=== PATIENT | male | born 1955 | race Caucasian/White ===

== ENCOUNTER 2016-12-15 06:56 | Day surgery (SDC) | payer BC ==
[2016-12-15] MEDS ORDERED: LACTATED RINGERS 1,000 ML IV SCH (07:01)
[2016-12-15] MEDS ORDERED: LIDOCAINE 1% 20 ML VIAL (10MG/ML) FOR IV START INTRADERMA PRN (07:01)
[2016-12-15 07:10] VITALS: RESP 18; TEMP 98
[2016-12-15] MEDS ORDERED: LACTATED RINGERS 1,000 ML IV ONE (07:10)
[2016-12-15] MEDS ORDERED: PROPOFOL 10 MG/ML 20 ML VIAL IV ONE (08:14)
--- NOTE | 2016-12-15 08:34 | P.OP ---
Date of Procedure: 12/15/16 Preoperative Diagnosis: Screening. Personal history of colon polyp tubular adenoma. Family history of colon CA in a parent. Postoperative Diagnosis: Mild diverticulosis. Procedure(s) Performed: Colonoscopy Anesthesia: MAC Surgeon: Jd Barahona Estimated Blood Loss (ml): 0 Pathology: none sent Condition: stable Disposition: same day Indications for Procedure: Screening. Personal history of colon polyps or tubular adenoma. Family history of colon CA in a parent. Operative Findings: Mild diverticulosis. Mild internal hemorrhoids. Description of Procedure: With the patient in the left lateral position rectal digital examination was normal there are no palpable masses. No prostatic masses. The video colonoscope was inserted transanally and advanced all the way to the cecum which was entered without visualized. The mucosa were thoroughly examined. Findings: Mild diverticulosis and mild internal hemorrhoids. No polyps neoplasms seen. Recommend follow-up colonoscopy in about the 5 years high-fiber diet.
[2016-12-15 09:04] VITALS: BP 111/74; PULSE 69
== END 2016-12-15 09:09 | disposition home or self-care (01) ==
LOC: ORWHC2ENDO 06:56
PROVIDERS: ATTEND Surgery
DX: Z12.11 Encounter for screening for malignant neoplasm of colon (principal); Z86.010 Personal history of colon polyps; Z80.0 Family history of malignant neoplasm of digestive organs; K57.30 Diverticulosis of large intestine without perforation or abscess without bleeding; K64.8 Other hemorrhoids; I10 Essential (primary) hypertension; Z79.899 Other long term (current) drug therapy
CPT/HCPCS: J2704; G0105

== ENCOUNTER → 2019-07-06 | Outpatient (CLI) | payer BC ==
--- NOTE | 2019-07-06 11:40 | XR ---
EXAMINATION TYPE: XR chest 2V DATE OF EXAM: 07/06/2019 COMPARISON: NONE HISTORY: Cough for 2 months TECHNIQUE: Frontal and lateral views of the chest are obtained. FINDINGS: There is no focal air space opacity, pleural effusion, or pneumothorax seen. The cardiac silhouette size is within normal limits. The osseous structures are intact. Mild multilevel degener ative changes of the spine. Partially visualized cervical fusion device. IMPRESSION: No acute cardiopulmonary process.
== END | disposition home or self-care (01) ==
LOC: RADXRYALE 11:04
PROVIDERS: ATTEND Physician Assistant Medical
DX: R05 Cough (principal)
CPT/HCPCS: 71046

== ENCOUNTER → 2020-05-14 | Outpatient (CLI) | payer BC ==
--- NOTE | 2020-05-14 12:44 | EST ---
EXERCISE STRESS AGE: 64 SEX: M HT: 5'11" WT: 250 lbs. PROTOCOL: Kahlil STAGE: III DURATION OF EXERCISE: 9:00 HEART RATE REST: 64 BLOOD PRESSURE REST: 128/77 MAXIMUM HEART RATE ACHIEVED: 133 MAXIMUM BLOOD PRESSURE: 208/120 85% MPHR: 133 100% MPHR: 157 METS: 10.5 INDICATION: Hypertension and dyslipidemia. Baseline EKG shows sinus rhythm, normal axis, normal intervals. Patient exercised on Kahlil protocol for a total of 9 minutes achieving 10 METS, 100% of predicted maximal heart rate without chest pain or diagnostic ST-segment depression. CONCLUSION: 1. Good exercise tolerance. 2. Negative stress test by EKG criteria. MMODL / IJN: [id number] /
== END | disposition home or self-care (01) ==
LOC: RADNMMAIN 10:02
PROVIDERS: ATTEND Family Medicine
DX: E78.2 Mixed hyperlipidemia (principal); I10 Essential (primary) hypertension; E66.09 Other obesity due to excess calories
CPT/HCPCS: 93017

== ENCOUNTER → 2020-05-15 | Outpatient (CLI) | payer BC ==
--- NOTE | 2020-05-15 11:29 | US ---
EXAMINATION TYPE: US abdomen complete DATE OF EXAM: 05/15/2020 COMPARISON: NONE CLINICAL HISTORY: R94.5 ABN LIVER FUNCTION STUDIES. EXAM MEASUREMENTS: Liver Length: 16.8 cm Gallbladder Wall: 0.3 cm CBD: 0.5 cm Spleen: 11.4 cm Right Kidney: 11.8 x 5.9 x 5.0 cm Left Kidney: 12.6 x 5.9 x 5.4 cm Pancreas: Obscured by bowel gas Liver: Increased attenuation, decreased visualization of vessels suggestive of fatty infiltrate Gallbladder: wnl Evidence for sonographic Lomeli's sign: No CBD: wnl Spleen: wnl Right Kidney: No hydronephrosis or masses seen Left Kidney: No hydronephrosis or masses seen Upper IVC: limited visualization Abd Aorta: proximal obscured. mid and distal appear WNL. IMPRESSION: 1. Nonspecific pattern to the liver can be seen with fatty infiltration, hepatitis or diffuse hepatoc ellular disease. Correlate clinically.
== END | disposition home or self-care (01) ==
LOC: RADUSWWP 10:32
PROVIDERS: ATTEND Family Medicine
DX: R94.5 Abnormal results of liver function studies (principal)
CPT/HCPCS: 76700

== ENCOUNTER → 2021-05-07 | Outpatient (CLI) | payer BC ==
--- NOTE | 2021-05-07 16:25 | XR ---
EXAMINATION TYPE: XR lumbosacral spine min 4V DATE OF EXAM: 05/07/2021 COMPARISON: 09/12/2015 HISTORY: Low back pain TECHNIQUE: 5 view lumbar spine FINDINGS: There are 5 lumbar-type vertebral bodies. Pedicles are intact. There is loss of disc at L5- S1. Posterior disc space narrowing is present L4-5. Facet degenerative changes are present L4-5 and to lesser degree L5-S1. No spondylolytic defects are evident. Vertebral body heights are preserved. A limbus vertebra may be present at T12. COMPARISON: Disc space narrowing posteriorly is developing at L4-5. IMPRESSION: 1. Degenerative disc changes L4-5 and L5-S1. 2. Facet degenerative changes lower lumbar spine
== END | disposition home or self-care (01) ==
LOC: RADXRYALE 11:50
PROVIDERS: ATTEND Physician Assistant Medical
DX: M47.817 Spondylosis without myelopathy or radiculopathy, lumbosacral region (principal)
CPT/HCPCS: 72110

== ENCOUNTER → 2023-07-15 | Outpatient (CLI) | payer MEDICARE ==
--- NOTE | 2023-07-15 09:41 | XR ---
EXAMINATION TYPE: XR chest 2V DATE OF EXAM: 07/15/2023 9:13 AM CLINICAL INDICATION:Male, 67 years old with history of [id number] INTERCOSTAL PAIN,RLQ PAIN; [facility] COMPARISON: Chest radiographs from 07/06/2019 TECHNIQUE: XR chest 2V Frontal and lateral views of the chest. FINDINGS: Lungs/Pleura: There is no evidence of pleural effusion, focal consolidation, or pneumothorax. Pulmonary vascularity: Unremarkable. Heart/mediastinum: Cardiomediastinal silhouette is unremarkable. Musculoskeletal: No acute osseous pathology. There is fixation hardware in the lower cervical spine. IMPRESSION: No acute cardiopulmonary disease/process.
--- NOTE | 2023-07-15 09:49 | XR ---
EXAMINATION TYPE: XR abdomen 2V DATE OF EXAM: 07/15/2023 9:13 AM CLINICAL INDICATION:Male, 67 years old with history of [id number] INTERCOSTAL PAIN,RLQ PAIN; [facility] COMPARISON: None. TECHNIQUE: Two views of the abdomen were obtained. FINDINGS: The bowel gas pattern is nonspecific without dilated loops of small or large bowel. There i s no evidence for organomegaly or pneumoperitoneum. The osseous structures are intact. No abnormal calcifications are present. Fecal material and gas are demonstrated throughout the colon and rectum. Multilevel degeneration changes throughout the spine with osteophyte formation and displacement. IMPRESSION: Nonspecific bowel gas pattern without radiographic evidence for acute process.
== END | disposition home or self-care (01) ==
LOC: RADXRYALE 08:57
PROVIDERS: ATTEND Physician Assistant
DX: R07.82 Intercostal pain (principal); R10.31 Right lower quadrant pain
CPT/HCPCS: 71046; 74019